=== PATIENT | female | born 1965 ===

== ENCOUNTER 2025-02-16 12:57 | Outpatient (REF) | payer OTHER, SELFPAY ==
--- NOTE | ~2025-02-16 | US_ITS ---
EXAMINATION: US PELVIS CLINICAL INFORMATION: Postmenopausal bleeding COMPARISON: None available. TECHNIQUE: Ultrasound of the pelvis is performed using both transabdominal and transvaginal transducers along with Doppler. Transvaginal imaging is performed due to inadequate visualization transabdominally. FINDINGS: Uterus: The uterus is anteverted, retroflexed, and measures 6.3 x 4.2 x 4.4 cm. Normal-appearing cervix. The double wall endometrial thickness is 6 mm. The uterus is smooth in contour and has heterogeneous myometrial echogenicity. There is a submucosal dorsal mid uterine segment fibroid measuring 1.2 x 1.0 x 1.2 cm. Adnexa: Both ovaries are visualized. There is normal color flow to the adnexa. There is no ovarian torsion. There is no pelvic ascites or fluid collection. Right ovary measures 2.2 x 1.4 x 1.1 cm. Volume = 1.6 mL. Normal sonographic appearance. Left ovary measures 2.3 x 1.4 x 1.5 cm. Volume = 2.5 mL. Normal sonographic appearance. US/US pelvic and transvaginal IMPRESSION: 1. There is a dorsal mid uterine segment submucosal fibroid measuring 1.2 cm. 2. There is no endometrial thickening. 3. Normal ovaries bilaterally. Electronically signed by: Elmer Quach MD 02/16/2025 04:43 PM EDT
== END 2025-02-16 12:58 | disposition home or self-care (01) ==
LOC: HO.UMASIMG 12:57
PROVIDERS: Visit Provider Family Medicine
DX: N93.9 Abnormal uterine and vaginal bleeding, unspecified (principal)
CPT/HCPCS: 76830; 76856

== ENCOUNTER → 2025-02-16 15:00 | Outpatient (BNV) | payer OTHER, SELFPAY | PROVIDERS: Visit Provider Radiology Diagnostic Radiology | DX: N95.0 Postmenopausal bleeding (principal) | CPT/HCPCS: 76856 ==